=== PATIENT | female | born 1970 | race African-American/Black ===

== ENCOUNTER 2017-01-29 15:33 | Emergency (ER) | payer MEDICAID ==
[~2017-01-29] VITALS: Ht 167.6 cm; Wt 123.5 kg
[2017-01-29] MEDS ORDERED: methimazole (17:42)
[2017-01-29] MEDS ORDERED: FURO40TA5 PO (17:42)
[2017-01-29] MEDS ORDERED: ATEN50TA PO (17:42)
[2017-01-29] MEDS ORDERED: LIDOCAINE HCL 1% 20ML VIAL (Pyxis) INJ MC ONE (20:30)
[2017-01-29 22:30] VITALS: BP 177/69
[2017-01-29] MEDS ORDERED: HYDROCODONE/ACETAMINOPHEN 5/325MG TABLET PO ONE (22:30)
== END 2017-01-29 22:53 | disposition home or self-care (01) ==
LOC: ER 15:34
DX: L02.31 Cutaneous abscess of buttock (principal); I10 Essential (primary) hypertension; E03.9 Hypothyroidism, unspecified; F17.200 Nicotine dependence, unspecified, uncomplicated; Z88.0 Allergy status to penicillin; Z98.890 Other specified postprocedural states; Z88.6 Allergy status to analgesic agent; Z88.8 Allergy status to other drugs, medicaments and biological substances
CPT/HCPCS: 10060; 99283; J3490; X7700; Z7610

== ENCOUNTER 2017-01-31 10:15 | Emergency (ER) | payer MEDICAID ==
[~2017-01-31] VITALS: Ht 167.6 cm; Wt 125.0 kg
[~2017-01-31 10:15] MED LIST: ATEN50TA PO; FURO40TA5 PO; methimazole
[2017-01-31] MEDS ORDERED: BACITRACIN ZINC OINT UDPKT TOP ONE (11:15)
[2017-01-31] MEDS ORDERED: CEFTRIAXONE SODIUM 500 MG/VIAL IM ONE (11:15)
[2017-01-31] MEDS ORDERED: ACETAMINOPHEN 325MG TABLET PO ONE (11:45)
[2017-01-31 11:53] VITALS: BP 151/90
== END 2017-01-31 12:09 | disposition home or self-care (01) ==
LOC: ER 11:07
DX: K61.1 Rectal abscess (principal); I10 Essential (primary) hypertension; E03.9 Hypothyroidism, unspecified; F17.210 Nicotine dependence, cigarettes, uncomplicated; Z88.1 Allergy status to other antibiotic agents; Z88.2 Allergy status to sulfonamides; Z88.5 Allergy status to narcotic agent; Z88.8 Allergy status to other drugs, medicaments and biological substances; Z79.899 Other long term (current) drug therapy; Z98.890 Other specified postprocedural states
CPT/HCPCS: 96372; 99283; J0696; Z7610

== ENCOUNTER 2017-02-09 08:08 | Emergency (ER) | payer MEDICAID ==
[~2017-02-09] VITALS: Ht 167.6 cm; Wt 123.0 kg
[2017-02-09] MEDS ORDERED: IBUPROFEN 600MG TABLET PO ONE (13:15)
[2017-02-09] MEDS ORDERED: LIDOCAINE HCL/EPINEPHRINE 1%-EPI 1:100,000 20 ML VIAL MC ONE (13:15)
[2017-02-09] MEDS ORDERED: HYDROCODONE/ACETAMINOPHEN 5/325MG TABLET PO ONE (13:30)
[2017-02-09] MEDS ORDERED: LIDOCAINE HCL 1%/EPI 1:200,000 30 ML VIAL IJ SCH (13:45)
[2017-02-09 13:53] VITALS: BP 148/69
== END 2017-02-09 15:49 | disposition home or self-care (01) ==
LOC: ER 11:51
DX: L02.31 Cutaneous abscess of buttock (principal); I10 Essential (primary) hypertension; E03.9 Hypothyroidism, unspecified; F17.200 Nicotine dependence, unspecified, uncomplicated; Z88.0 Allergy status to penicillin; Z88.2 Allergy status to sulfonamides; Z88.8 Allergy status to other drugs, medicaments and biological substances; Z98.890 Other specified postprocedural states
CPT/HCPCS: 10060; 99283; X7700; Z7610; J3490

== ENCOUNTER 2017-11-01 15:07 | Emergency (ER) | payer MEDICAID ==
[~2017-11-01] VITALS: Ht 167.6 cm; Wt 123.0 kg
[2017-11-01 15:51] VITALS: BP 182/87
== END 2017-11-01 18:32 | disposition left against medical advice (07) ==
LOC: ER 15:07
DX: Z53.21 Procedure and treatment not carried out due to patient leaving prior to being seen by health care provider (principal)

== ENCOUNTER → 2020-07-02 | Outpatient (CLI) | payer MEDICAID | END | disposition home or self-care (01) | LOC: LAB 11:58 | PROVIDERS: ATTEND Internal Medicine Gastroenterology | DX: Z01.812 Encounter for preprocedural laboratory examination (principal); Z20.828 Contact with and (suspected) exposure to other viral communicable diseases | CPT/HCPCS: C9803; U0003 ==

== ENCOUNTER 2020-07-05 07:59 | Day surgery (SDC) | payer MEDICAID ==
[~2020-07-05] VITALS: Ht 167.6 cm; Wt 136.1 kg
[2020-07-05] MEDS ORDERED: LACTATED RINGERS 1,000 ML IV SCH (09:30)
[2020-07-05 09:42] LABS: BASOPHILS % 0.9 % (0.0-2.0); EOSINOPHILS % 0.7 % (0.0-5.0); HEMOGLOBIN. 13.1 g/dL (12.0-16.0); LYMPHOCYTES % 25.7 % (20.0-50.0); MEAN CORPUSCULAR HEMOGLOBIN 31.4 pg (28.0-32.0); MEAN CORPUSCULAR VOLUME 91.2 fL (81.0-99.0); MONOCYTES % 4.9 % (2.0-8.0); NEUTROPHILS % 67.8 % (40.0-76.0); RED BLOOD CELL COUNT 4.17 mill/uL (4.2-5.4); RED CELL DISTRIBUTION WIDTH 14.5 % (11.6-14.6)
[2020-07-05 09:43] LABS: HCG SCREEN NEGATIVE
[2020-07-05 09:44] LABS: CHLORIDE 106 mEq/L (98-107)
[2020-07-05 09:46] LABS: PARTIAL THROMBOPLASTIN TIME 34.1 sec (23.4-31.0); PROTHROMBIN TIME 10.9 sec (9.6-11.0)
[2020-07-05] MEDS ORDERED: HYDROMORPHONE HCL/PF 2MG/ML (OR) ONE ×2 (10:39→10:55)
[2020-07-05] MEDS ORDERED: PROPOFOL 200MG/20ML VIAL IV ONE (10:44)
[2020-07-05] MEDS ORDERED: SIMETHICONE 40 MG/0.6 ML 30ML ONE (10:48)
[2020-07-05] MEDS ORDERED: HYDROMORPHONE HCL/PF 2MG/ML CPJ IV PRN (11:30)
[2020-07-05] MEDS ORDERED: LABETALOL 5MG/ML SYR 20 MG/4 ML SYRINGE IV PRN (11:30)
[2020-07-05] MEDS ORDERED: MEPERIDINE HCL/PF 25MG/ML CPJ IV PRN (11:30)
[2020-07-05] MEDS: DIPHENHYDRAMINE 50MG/ML VIAL IV PRN ×2 (11:42→11:51)
[2020-07-05 12:13] LABS: PLATELET ESTIMATE NORMAL
[2020-07-05] MEDS: ONDANSETRON HCL 4MG/2ML INJ IV PRN ×2 (12:58→13:20)
[2020-07-05] MEDS ORDERED: PANTOPRAZOLE SODIUM 40 MG/VIAL IV ONE (14:15)
[2020-07-05] MEDS ORDERED: METOCLOPRAMIDE HCL 10MG/2ML VIAL IV ONE (14:15)
[2020-07-06] MEDS ORDERED: LACTATED RINGERS 1,000 ML IV SCH (09:30)
== END 2020-07-05 15:55 | disposition home or self-care (01) ==
LOC: OR 07:59
PROVIDERS: ATTEND Internal Medicine Gastroenterology
DX: K52.89 Other specified noninfective gastroenteritis and colitis (principal); R10.13 Epigastric pain; K21.9 Gastro-esophageal reflux disease without esophagitis; K44.9 Diaphragmatic hernia without obstruction or gangrene; K63.5 Polyp of colon; K29.50 Unspecified chronic gastritis without bleeding; K31.89 Other diseases of stomach and duodenum; K63.89 Other specified diseases of intestine; I10 Essential (primary) hypertension; E66.9 Obesity, unspecified; E05.90 Thyrotoxicosis, unspecified without thyrotoxic crisis or storm; J45.909 Unspecified asthma, uncomplicated; M19.90 Unspecified osteoarthritis, unspecified site; F17.210 Nicotine dependence, cigarettes, uncomplicated; Z80.0 Family history of malignant neoplasm of digestive organs; Z79.899 Other long term (current) drug therapy; Z98.890 Other specified postprocedural states; Z88.8 Allergy status to other drugs, medicaments and biological substances; Z88.1 Allergy status to other antibiotic agents; Z88.5 Allergy status to narcotic agent; Z68.42 Body mass index [BMI] 45.0-49.9, adult
CPT/HCPCS: 36415; 43239; 45380; 71045; 80048; 82962; 84703; 85025; 85610; 85730; 88305; 88313; 93005; C9113; J1170; J1200; J2405; J2704; J2765

== ENCOUNTER 2020-11-15 22:41 | Emergency (ER) | payer MEDICAID ==
[~2020-11-15] VITALS: Ht 167.6 cm; Wt 139.0 kg
[2020-11-15] MEDS ORDERED: KETOROLAC 30MG/ML VIAL IM ONE (23:00)
[2020-11-16] MEDS ORDERED: HYDROCODONE/ACETAMINOPHEN 5/325MG TABLET PO ONE
[2020-11-16 00:04] VITALS: BP 131/74
== END 2020-11-16 00:11 | disposition home or self-care (01) ==
LOC: ER 22:41
DX: M79.89 Other specified soft tissue disorders (principal); J45.909 Unspecified asthma, uncomplicated; I10 Essential (primary) hypertension; Z98.890 Other specified postprocedural states; E05.90 Thyrotoxicosis, unspecified without thyrotoxic crisis or storm; Z88.0 Allergy status to penicillin; Z88.5 Allergy status to narcotic agent
CPT/HCPCS: 29125; 71045; 73110; 73130; 81025; 96372; 99284; C9803; J1885; U0003

== ENCOUNTER 2021-04-10 18:27 | Emergency (ER) | payer MEDICAID ==
[~2021-04-10] VITALS: Ht 167.6 cm; Wt 151.0 kg
[2021-04-10] MEDS ORDERED: IBUPROFEN 800MG TABLET PO ONE (20:00)
[2021-04-10] MEDS ORDERED: HYDROCODONE/ACETAMINOPHEN 5/325MG TABLET PO ONE (20:15)
[2021-04-10] MEDS ORDERED: HYDR-4346 MT (20:46)
[2021-04-10] MEDS ORDERED: AZIT250T12 MT (20:46)
[2021-04-10] MEDS ORDERED: TRAM-529 MT (20:50)
[2021-04-10] MEDS ORDERED: AZIT250T MT (20:56)
[2021-04-10] MEDS ORDERED: AZIT500T3 MT (20:56)
[2021-04-10 21:00] VITALS: BP 131/71
== END 2021-04-10 21:43 | disposition home or self-care (01) ==
LOC: ER 18:27
DX: H66.92 Otitis media, unspecified, left ear (principal); H60.92 Unspecified otitis externa, left ear; Z88.0 Allergy status to penicillin; Z88.5 Allergy status to narcotic agent; Z88.2 Allergy status to sulfonamides
CPT/HCPCS: 99283